=== PATIENT | female | born 1970 | race Caucasian/White ===

== ENCOUNTER 2025-06-21 15:30 | Inpatient (IN) | payer BC ==
[2025-06-21 17:04] LABS: #Basophils 0.03 10x3/uL (0.0-0.2); #Eosinophils 0.07 10x3/uL (0.0-0.7); #Monocytes 0.37 10x3/uL (0.11-0.59); #Neutrophils 3.13 10x3/uL (1.40-6.50); %Basophils 0.5 % (0.0-1.0); %Eosinophils 1.1 % (0.0-10.0); %Lymphocytes 43.5 % (21.0-51.0); %Monocytes 5.8 % (0.0-10.0); %Neutrophils 48.8 % (42.0-75.0); Hematocrit 39.4 % (36.0-47.0); Hemoglobin 13.0 g/dL (12.0-16.0); Mean Corpuscular Hemoglobin 28.4 pg (27.0-31.0); Mean Corpuscular Volume 86.0 fL (78.0-98.0); Platelet Count 277 10x3/uL (130-400); Red Blood Cell (RBC) Count 4.58 mill/uL (4.20-5.40); White Blood Cell (WBC) Count 6.41 10x3/uL (4.8-10.8)
[2025-06-21 17:22] LABS: ALT (SGPT) 41 U/L (Less than 34); AST (SGOT) 72 U/L (11-34); Albumin 4.3 g/dL (3.1-4.5); Alkaline Phosphatase 159 U/L (40-110); Anion Gap 16 mmol/L (10-20); BUN (Urea Nitrogen) 8 mg/dL (9.8-20.1); Bilirubin, Total 0.4 mg/dL (0.3-1.2); Calc. Creatinine Clearance 0 mL/min (70-130); Calcium 9.4 mg/dL (7.8-10.44); Carbon Dioxide 24 mmol/L (22-29); Chloride 103 mmol/L (98-107); Globulin 3.8 g/dL (2.4-3.5); Glucose 99 mg/dL (70-105); Potassium 3.5 mmol/L (3.5-5.1); Sodium 139 mmol/L (136-145)
[2025-06-21] MEDS ORDERED: Guaifenesin DM 100-10/5 ML UDCUP PO PRN (23:08)
[2025-06-21] MEDS ORDERED: Acetaminophen 325 MG TAB PO PRN (23:08)
[2025-06-21] MEDS ORDERED: Melatonin 3 MG TAB PO PRN (23:08)
[2025-06-21] MEDS ORDERED: Calcium Carbonate 500 MG ChewTAB PO PRN (23:08)
[2025-06-21] MEDS ORDERED: Nitroglycerin 0.4 MG TAB (25 Tab Bottle) SL PRN (23:12)
[2025-06-21] MEDS ORDERED: PHOS-NAK 1 PKT PACK PO PRN (23:30)
[2025-06-21] MEDS ORDERED: Potassium Chloride 20 MEQ in Premix 1 BAG IVPB PRN (23:30)
[2025-06-21] MEDS ORDERED: Furosemide 20 MG (2 mL) VIAL ONE (23:32)
[2025-06-21 23:36] LABS: Cardiac Risk 2.6 (Less than 4.5); Cholesterol 144 mg/dl (< 200 Desired); HDL Cholesterol 55 mg/dL (>60 Neg Risk); LDL Cholesterol, Calculated 66 mg/dL; Magnesium 2.0 mg/dL (1.6-2.6); Triglycerides 114 mg/dL (Less than 150)
[2025-06-22 00:47] VITALS: BMI 36.2
[2025-06-22 05:25] LABS: #Basophils 0.03 10x3/uL (0.0-0.2); #Eosinophils 0.09 10x3/uL (0.0-0.7); #Monocytes 0.43 10x3/uL (0.11-0.59); #Neutrophils 3.60 10x3/uL (1.40-6.50); %Basophils 0.4 % (0.0-1.0); %Eosinophils 1.3 % (0.0-10.0); %Lymphocytes 38.6 % (21.0-51.0); %Monocytes 6.4 % (0.0-10.0); %Neutrophils 53.2 % (42.0-75.0); Hematocrit 36.0 % (36.0-47.0); Hemoglobin 11.7 g/dL (12.0-16.0); Mean Corpuscular Hemoglobin 28.3 pg (27.0-31.0); Mean Corpuscular Volume 87.0 fL (78.0-98.0); Platelet Count 251 10x3/uL (130-400); Red Blood Cell (RBC) Count 4.14 mill/uL (4.20-5.40); White Blood Cell (WBC) Count 6.77 10x3/uL (4.8-10.8)
[2025-06-22 05:41] LABS: Anion Gap 16 mmol/L (10-20); BUN (Urea Nitrogen) 8 mg/dL (9.8-20.1); Calc. Creatinine Clearance 148 mL/min (70-130); Calcium 9.2 mg/dL (7.8-10.44); Carbon Dioxide 27 mmol/L (22-29); Chloride 104 mmol/L (98-107); Glucose 95 mg/dL (70-105); Potassium 3.2 mmol/L (3.5-5.1); Sodium 144 mmol/L (136-145)
[2025-06-22] MEDS: Gabapentin 300 MG CAP PO SCH (09:13)
[2025-06-22] MEDS: Famotidine 20 MG TAB PO SCH (09:13)
[2025-06-22] MEDS: Enoxaparin 40 MG (0.4 mL) SYRINGE SC SCH (09:14)
[2025-06-22] MEDS: Furosemide 40 MG (4 mL) VIAL SLOW IVP SCH (09:14)
[2025-06-22] MEDS: Carvedilol 6.25 MG TAB PO SCH (09:14)
[2025-06-22] MEDS: Aspirin 81 mg Enteric Coated Tablet PO SCH (09:14)
[2025-06-22] MEDS: PNEUMOC 20-VAL CONJ-DIP CRM/PF 0.5 ML SYRINGE IM ONE (09:31)
[2025-06-22] MEDS: FLU (Fluarix Triv) 25-26 (6MOS UP)/PF 45 MCG/0.5 ML Syringe IM ONE (09:32)
[2025-06-22] MEDS: Magnesium 2 GM/50 ML(in water) 2 GM in Premix 1 BAG IVPB PRN (09:41)
[2025-06-22 09:55] LABS: Potassium 3.9 mmol/L (3.5-5.1)
[2025-06-22 11:42] VITALS: BP 109/52; TEMP 98
[2025-06-22] MEDS: Benzocaine/Menthol 1 LOZ LOZ PO PRN (14:08)
== END 2025-06-22 14:19 | disposition home or self-care (01) | DRG 313 ==
LOC: ERS 15:30 → OBS 23:02
PROVIDERS: ADMIT Internal Medicine; ATTEND Internal Medicine
PROC: 3E0234Z Introduction of Serum, Toxoid and Vaccine into Muscle, Percutaneous Approach (ICD-10-PCS; principal; 2025-06-22)
DX: R07.89 Other chest pain (principal); I10 Essential (primary) hypertension; E78.5 Hyperlipidemia, unspecified; M54.9 Dorsalgia, unspecified; I48.0 Paroxysmal atrial fibrillation; G62.9 Polyneuropathy, unspecified; Z88.8 Allergy status to other drugs, medicaments and biological substances; Z98.890 Other specified postprocedural states; Z79.82 Long term (current) use of aspirin; Z90.710 Acquired absence of both cervix and uterus; Z79.899 Other long term (current) drug therapy; Z23 Encounter for immunization
CPT/HCPCS: 36415; 70450; 71045; 71275; 80048; 80053; 80061; 83036; 83735; 83880; 84443; 84484; 85025; 85379; 90471; 90656; 90677; 93005; 93306; 96374; G0009; J1650; J1940; J3475